=== PATIENT | female | born 1985 | race Caucasian/White ===

== ENCOUNTER → 2018-02-18 | Outpatient (REF) | payer OTHER ==
[~2018-02-18] MED LIST: ACE3 PO; DOCU-194; HYDR28OI11 TP; IBU800 PO; IBUP600T22 PO; IBUP800T37 PO; LORA-630 PO; ONDA-2 PO; ONDA4TAB PO; OXYB10TA16 PO; PANT40TA65 PO; PHEN200T32 PO; SER50 PO; TAMS0.4C70 PO
[2018-02-18 13:42] LABS: PLATELET COUNT, AUTOMATED 217 K/uL (150-450)
== END ==
LOC: ZZSENDIN 13:30
PROVIDERS: ATTEND Physician Assistant
DX: R53.83 Other fatigue (principal)
CPT/HCPCS: 85025

== ENCOUNTER → 2018-02-20 | Outpatient (CLI) | payer OTHER ==
--- NOTE | 2018-02-20 14:36 | RADIOLOGY IMAGING REPORT ---
FACILITY: [facility] - [place] PATIENT NAME: Nereyda Johnson : 1985 MR: [id number] V: [id number] EXAM DATE: ORDERING PHYSICIAN: BRYSON PAUL TECHNOLOGIST: Location: [facility] Patient: Nereyda Johnson : 1985 Visit/Account:[id number] Date of Sevice: 02/20/2018 THYROID HISTORY: Thyroid nodules COMPARISON: August 30, 2015 FINDINGS: SIZE: Normal. Right lobe: 4.5 x 1.3 x 1.8 cm Left lobe: 4.6 x 1.4 x 1.4 cm Isthmus: 2 mm PARENCHYMA: Slight heterogeneous bilaterally NODULES: Right lobe: * Previous noted subtle nodule along the anterior aspect of the right lobe is relatively unchanged i n size measuring 7.5 mm in maximum dimension. Left lobe: * None discrete. Isthmus: * There is a 3 x 7 x 2 mm cyst in the isthmus VASCULARITY: Within normal limits. ADDITIONAL FINDINGS: None. IMPRESSION: Previous noted subtle nodule along the anterior aspect of the right lobe is unchanged in size measuri ng 7.5 mm in diameter 7 mm cyst in the isthmus REFERENCE: 2015 [place] [employer] Management Guidelines for Adult Patients with Thyroid Nodules and D ifferentiated Thyroid Cancer: The [place] [employer] Guidelines Task Force on Thyroid Nodul es and Differentiated Thyroid Cancer. SONOGRAPHIC PATTERNS: * Benign: Purely cystic nodules (no solid component); estimated risk of malignancy <1 percent; no bi opsy recommended. * Very Low Suspicion: Spongiform or partially cystic nodules without any of the sonographic features described in low, intermediate, or high suspicion patterns; estimated risk of malignancy <3 percent; consider FNA at > 2 cm (Observation without FNA is also a reasonable option). * Low Suspicion: Isoechoic or hyperechoic solid nodule, or partially cystic nodule with eccentric so lid areas, without microcalcification, irregular margin or ETE (extra-thyroidal extension), or taller than wide shape; estimated risk of malignancy 5-10 percent; recommend FNA at >1.5 cm. * Intermediate Suspicion: Hypoechoic solid nodule with smooth margins without microcalcifications, E TE (extra-thyroidal extension), or taller than wide shape; estimated risk of malignancy 10-20 percent ; recommend FNA at > 1 cm. * High Suspicion: Solid hypoechoic nodule or solid hypoechoic component of a partially cystic nodule with one or more of the following features: irregular margins (infiltrative, microlobulated), microc alcifications, taller than wide shape, rim calcifications with small extrusive soft tissue component, evidence of ETE (extra-thyroidal extension); estimated risk of malignancy >70-90 percent; recommend FNA at > 1 cm. NOTES: * Although a sonographically suspicious subcentimeter thyroid nodule without evidence of extrathyroi yonathan extension or sonographically suspicious lymph nodes may be observed with close sonographic follow -up rather than pursuing immediate FNA, patient age and preference may modify decision-making. A > 50% interval increase in nodule volume and/or development of new suspicious sonographic features are felt to be a valid reasons for potential re-aspiration of a nodule previously shown to have benig n FNA cytology. Report Dictated By: Vivian Magana MD at 02/20/2018 2:27 PM Report E-Signed By: Vivian Magana MD at 02/20/2018 2:31 PM ABDIN:LEAH
== END ==
LOC: US 06:54
PROVIDERS: ATTEND Physician Assistant
DX: E04.2 Nontoxic multinodular goiter (principal)
CPT/HCPCS: 76536

== ENCOUNTER → 2019-02-02 | Outpatient (CLI) | payer OTHER ==
[~2019-02-02] MED LIST changes: +CHOL100058 PO; -DOCU-194; +DOCU100C56; +DOXY-179 PO; +LACT1CAP6 PO; +LEU3.75I IM ONLY; +LEUP11.25I IM ONLY; +LEVO1IUD3 IY; +LORA-1455 PO; +NOR5 PO
--- NOTE | 2019-02-02 09:32 | EKG ---
FACILITY: [facility] - [place] PATIENT NAME: FORD BECKETT : [id number] MR: [id number] V: [id number] EXAM DATE: ORDERING PHYSICIAN: SARAHY MARKS TECHNOLOGIST: DOM Momin Reason : PALPITATIONS Blood Pressure : / mmHG Vent. Rate : 066 BPM Atrial Rate : 066 BPM P-R Int : 154 ms QRS Dur : 080 ms QT Int : 370 ms P-R-T Axes : 076 092 077 degrees QTc Int : 387 ms Normal sinus rhythm Rightward axis No ST-T abnormalities No previous ECGs available Confirmed by CIARRA FERMIN ([id number]) on 02/02/2019 3:28:41 PM Referred By: SELINA Confirmed By:CIARRA FERMIN
== END ==
LOC: RESP 08:53
PROVIDERS: ATTEND Family Medicine
DX: R00.2 Palpitations (principal)
CPT/HCPCS: 93005

== ENCOUNTER → 2019-02-04 | Outpatient (CLI) | payer OTHER | LOC: LAB 11:13 | PROVIDERS: ATTEND Emergency Medicine | DX: G62.9 Polyneuropathy, unspecified (principal); R53.83 Other fatigue; N20.0 Calculus of kidney | CPT/HCPCS: 36415; 82306; 82310; 82607; 83970 ==

== ENCOUNTER → 2019-02-12 | Outpatient (CLI) | payer OTHER ==
--- NOTE | 2019-02-15 11:35 | RT HOLTER TEST ---
FACILITY: [facility] [place] PATIENT NAME: FORD BECKETT : [id number] MR: [id number] V: [id number] EXAM DATE: ORDERING PHYSICIAN: SARAHY MARKS TECHNOLOGIST: DONALD Hook-up date: 2019-02-12 09:08:00 Duration: 47:59:00 Test Indications: IRREGULAR HEART BEAT Medications: [id number] QRS complexes * Ventricular ectopics which represent % of total QRS comp. 2 Supraventricular ectopics which represent <1 % of total QRS comp. * Paced QRS complexes which represent % of total QRS comp. VENTRICULAR ECTOPY * Isolated * Bigeminal Cycles * Couplets * Runs * Beats in Runs * Beats LONGEST at * BPM at :: -- * Beats FASTEST at * BPM at :: -- SUPRAVENTRICULAR ECTOPY 2 Isolated 0 Couplets 0 Runs 0 Beats in Runs * Beats LONGEST at * BPM at :: -- * Beats FASTEST at * BPM at :: -- HEART RATES 53 MIN at 05:18:47 2019-02-14 82 AVG 142 MAX at 13:07:31 2019-02-13 LONGEST RR 1.256 secs at 05:18:42 2019-02-14 S-T LEVELS Channel 1 -12.800 mm MIN at 09:08:00 2019-02-12 -12.800 mm MAX at 09:08:00 2019-02-12 Channel 2 -12.800 mm MIN at 09:08:00 2019-02-12 -12.800 mm MAX at 09:08:00 2019-02-12 Channel 3 -12.800 mm MIN at 09:08:00 2019-02-12 -12.800 mm MAX at 09:08:00 2019-02-12 She had no arryhthmias during the one symptom triggered event. She was predominantly in a sinus rhyt hm and had rare supraventricular ectopy. Confirmed by CIARRA FERMIN ([id number]) on 02/15/2019 11:35:32 AM Referred By: Overread By: CIARRA FERMIN
== END ==
LOC: RESP 08:51
PROVIDERS: ATTEND Family Medicine
DX: I49.9 Cardiac arrhythmia, unspecified (principal)
CPT/HCPCS: 93225

== ENCOUNTER → 2019-02-18 | Outpatient (CLI) | payer OTHER ==
--- NOTE | 2019-02-18 16:59 | RADIOLOGY IMAGING REPORT ---
FACILITY: [facility] - [place] PATIENT NAME: Nereyda Johnson : 1985 MR: [id number] V: [id number] EXAM DATE: ORDERING PHYSICIAN: SMITHA SNYDER TECHNOLOGIST: Location: [facility] [place] Patient: Nereyda Johnson : 1985 Visit/Account:[id number] Date of Sevice: 02/18/2019 THYROID HISTORY: Thyroid nodule COMPARISON: February 20, 2018 FINDINGS: SIZE: Normal. Right lobe: 4.6 x 1.6 x 1.5 cm Left lobe: 4.4 x 1.2 x 1.2 cm Isthmus: 1.6 mm PARENCHYMA: Homogeneous. NODULES: Right lobe: * None discrete. Left lobe: * None discrete. Isthmus: * There is a 2.7 x 1.3 x 2.8 mm cyst in the isthmus VASCULARITY: Within normal limits. ADDITIONAL FINDINGS: None. IMPRESSION: 2.7 x 1.3 x 2.8 mm cyst in the isthmus REFERENCE: 2015 [place] [employer] Management Guidelines for Adult Patients with Thyroid Nodules and D ifferentiated Thyroid Cancer: The [place] Thy[employer] Guidelines Task Force on Thyroid Nodul es and Differentiated Thyroid Cancer. SONOGRAPHIC PATTERNS: * Benign: Purely cystic nodules (no solid component); estimated risk of malignancy <1 percent; no bi opsy recommended. * Very Low Suspicion: Spongiform or partially cystic nodules without any of the sonographic features described in low, intermediate, or high suspicion patterns; estimated risk of malignancy <3 percent; consider FNA at > 2 cm (Observation without FNA is also a reasonable option). * Low Suspicion: Isoechoic or hyperechoic solid nodule, or partially cystic nodule with eccentric so lid areas, without microcalcification, irregular margin or ETE (extra-thyroidal extension), or taller than wide shape; estimated risk of malignancy 5-10 percent; recommend FNA at >1.5 cm. * Intermediate Suspicion: Hypoechoic solid nodule with smooth margins without microcalcifications, E TE (extra-thyroidal extension), or taller than wide shape; estimated risk of malignancy 10-20 percent ; recommend FNA at > 1 cm. * High Suspicion: Solid hypoechoic nodule or solid hypoechoic component of a partially cystic nodule with one or more of the following features: irregular margins (infiltrative, microlobulated), microc alcifications, taller than wide shape, rim calcifications with small extrusive soft tissue component, evidence of ETE (extra-thyroidal extension); estimated risk of malignancy >70-90 percent; recommend FNA at > 1 cm. NOTES: * Although a sonographically suspicious subcentimeter thyroid nodule without evidence of extrathyroi yonathan extension or sonographically suspicious lymph nodes may be observed with close sonographic follow -up rather than pursuing immediate FNA, patient age and preference may modify decision-making. A > 50% interval increase in nodule volume and/or development of new suspicious sonographic features are felt to be a valid reasons for potential re-aspiration of a nodule previously shown to have benig n FNA cytology. Report Dictated By: Vivian Magana MD at 02/18/2019 4:47 PM Report E-Signed By: Vivina Magana MD at 02/18/2019 4:54 PM WSN:[email or web address]
== END ==
LOC: US 00:22
PROVIDERS: ATTEND Emergency Medicine
DX: E04.1 Nontoxic single thyroid nodule (principal)
CPT/HCPCS: 76536

== ENCOUNTER 2019-05-12 00:35 | Observation (INO) | payer OTHER ==
[2019-05-12] VITALS (14 sets, daily range): BP systolic 97–116; BP diastolic 56–81
[~2019-05-12] VITALS: Ht 167.6 cm; Wt 56.7 kg
[~2019-05-12 00:35] MED LIST changes: +LEVO50TA86 PO
[2019-05-12] MEDS ORDERED: FAMOTIDINE 20 MG TAB PO ONE (06:30)
[2019-05-12] MEDS ORDERED: ceFAZolin(*) 1 GM VIAL 1 GM in NS(*) 0.9% 100 ML MINI-BAG 100 ML IVPB ONE (06:30)
[2019-05-12] MEDS ORDERED: MIDAZOLAM 2 MG/2 ML VIAL IVP PRN (06:30)
[2019-05-12] MEDS ORDERED: PHENAZOPYRIDINE 200 MG TAB PO ONE (06:30)
[2019-05-12] MEDS ORDERED: ceFAZolin(*) 2GM/D5W 50ML 50 ML IVPB ONE (06:30)
[2019-05-12] MEDS ORDERED: LIDOCAINE/SOD BICARB 8.4% SYR ID ONE (06:30)
[2019-05-12] MEDS ORDERED: NORMOSOL R SOLN(*) 1000 ML BAG 1,000 ML IV PRN (06:30)
[2019-05-12 06:51] LABS: PLATELET COUNT, AUTOMATED 202 K/uL (150-450)
[2019-05-12] MEDS ORDERED: fentaNYL CITR 100 MCG/2 ML AMP ONE ×2 (06:59→08:30)
[2019-05-12] MEDS ORDERED: KETAMINE HCL-NS 50 MG/5 ML SYR ONE (06:59)
[2019-05-12] MEDS ORDERED: ONDANSETRON 4 MG/2 ML VIAL ONE (07:00)
[2019-05-12] MEDS ORDERED: PROPOFOL EMUL(*) 10MG/ML 20 ML 20 ML ONE (07:00)
[2019-05-12] MEDS ORDERED: ROCURONIUM BR 10 MG/ML 5 ML SY 5 ML ONE (07:00)
[2019-05-12] MEDS ORDERED: LIDOCAINE MPF 1% 5 ML VIAL ONE (07:00)
[2019-05-12] MEDS ORDERED: DEXAMETHASONE SOD PHOS 10MG/ML ONE (07:00)
[2019-05-12] MEDS ORDERED: BUPIV/EPI 0.25% 1:200,000 50ML INFIL ONE (07:05)
[2019-05-12] MEDS ORDERED: APREPITANT 40 MG CAP PO ONE (07:10)
[2019-05-12] MEDS ORDERED: SUGAMMADEX SOD 200 MG/2 ML SDV ONE ×2 (08:30→08:51)
[2019-05-12] MEDS ORDERED: KETOROLAC 30 MG/ML VIAL ONE (08:47)
--- NOTE | 2019-05-12 09:33 | Post Operative Note ---
Operative Note - [facility] Operative Day Date: May 12, 2019 Time: 09:28 Physicians Surgeon: Alfonzo Cake Maker: Bob Anesthesia: Patience GUZMAN Diagnosis Pre-Op Diagnosis: Chronic pelvic pain, presumed endometriosis Post-Op Diagnosis: Same Procedure Procedure(s): PHUONG, BS, dx cysto Specimen Removed:(Maybe N/A): Uterus, bilateral fallopian tubes, cervix Fluids Fluids: IVF: 1500cc UOP: 300cc Estimated Blood Loss: Minimal ZENAIDA KAUR MD May 12, 2019 09:32
[2019-05-12] MEDS ORDERED: LORazepam 0.5 MG TAB PO PRN (09:35)
[2019-05-12] MEDS ORDERED: MAGNESIUM HYDROXIDE* 30ML UDCP PO PRN (09:35)
[2019-05-12] MEDS ORDERED: METOCLOPRAMIDE 10 MG/2 ML SDV IV PRN (09:35)
[2019-05-12] MEDS ORDERED: HYDROmorphone HCL 2 MG/ML SDV IVP PRN (09:35)
[2019-05-12] MEDS: ONDANSETRON 4 MG/2 ML VIAL IV PRN ×2 (10:58→17:20)
[2019-05-12] MEDS: oxyCODONE HCL 5 MG CAP PO PRN ×2 (11:04→17:18)
--- NOTE | 2019-05-12 12:15 | EKG ---
FACILITY: [facility] PATIENT NAME: FORD BECKETT : [id number] MR: [id number] V: [id number] EXAM DATE: ORDERING PHYSICIAN: ZENAIDA KAUR TECHNOLOGIST: LINDA Test Reason : CHEST PRESSURE Blood Pressure : / mmHG Vent. Rate : 077 BPM Atrial Rate : 077 BPM P-R Int : 166 ms QRS Dur : 096 ms QT Int : 394 ms P-R-T Axes : 084 088 076 degrees QTc Int : 445 ms Normal sinus rhythm with sinus arrhythmia Nonspecific T wave abnormality Abnormal ECG When compared with ECG of 02-FEB-2019 09:23, T wave inversion now evident in Anterior leads QT has lengthened Confirmed by SABRA GIBBS ([id number]) on 05/13/2019 6:27:40 AM Referred By: NATASHA Confirmed By:SABRA GIBBS
--- NOTE | 2019-05-12 12:41 | OPERATIVE REPORT 1 ---
EVENT DATE: May 12, 2019 SURGEON: Ping Mejía MD ANESTHESIOLOGIST: Darian Morin MD ANESTHESIA: General endotracheal tube anesthesia. SCRAP CRANE OPERATOR: Dhaval Rojas MD PREOPERATIVE DIAGNOSIS Chronic pelvic pain with presumed endometriosis. POSTOPERATIVE DIAGNOSIS Chronic pelvic pain with presumed endometriosis. PROCEDURE PERFORMED 1. Robotic-assisted total laparoscopic hysterectomy with bilateral salpingectomy. 2. Diagnostic cystoscopy. SPECIMENS Uterus, cervix and bilateral fallopian tubes. IV FLUIDS 1500 cc. URINE OUTPUT 300 cc. ESTIMATED BLOOD LOSS Minimal. INDICATIONS FOR PROCEDURE This patient is a 33-year-old 3, para 3, who presented to clinic with chronic pelvic pain. She had attempted multiple hormonal therapy options for management of her pelvic pain including hormones, IUD, and antibiotics. None of this helped her. She therefore went on Depo-Lupron to see if this would improve her pain. She received two 3-month treatments of Depo-Lupron with significant improvement of her pelvic pain. She therefore developed a presumptive diagnosis of endometriosis. After discussing her management options when she stops the Depo-Lupron, she elected for definitive management. Her has had a vasectomy and they are no longer interested in further children. She therefore was consented for the above said procedure and admitted for the same. Please see History and Physical for full details. DESCRIPTION OF PROCEDURE The patient was properly identified and taken to the operating room. She was placed under general endotracheal tube anesthesia, placed in the dorsal lithotomy position and prepped and draped in the usual fashion for a laparoscopic and vaginal procedure. The patient received Ancef preoperatively for prophylactic antibiotics. Her SCDs were on and functioning. A bimanual exam was performed which revealed an approximately 8 cm anteverted uterus. A Graves speculum was placed to visualize the cervix which was multiparous and without lesion. The anterior lip was grasped with an Allis clamp. The cervix was serially dilated to 5 mm using Hegar dilators. A medium VCare uterine manipulator was then requested and assembled. A suture was then placed through the anterior lip of the cervix, through the os and then from the os through the posterior lip of the cervix. This suture was then passed through the VCare which was placed up to the uterine fundus and the tip was insufflated. This remained in place and the colpotomy ring was advanced to be flush against the cervix and vaginal mucosa. This was then tied down with the O Vicryl suture. The PneumoClear was then advanced into the vagina and secured. A Ross catheter was then placed to drain the bladder. The patient was then placed in the supine position and attention was turned to the laparoscopic portion of the procedure. The supraumbilical region was infiltrated with 0.25% Marcaine with epinephrine as well as the umbilicus. A Veress needle was then tested and proven to be functioning. The Veress needle was introduced through the umbilicus without difficulty using the double-click test. The pneumoperitoneum was initiated. An 8 mm incision was then made supraumbilically and an 8 mm trocar was introduced through this midline incision under direct visualization using a [employer] laparoscope. Once entry into the abdominal cavity was confirmed, the remaining locations of the trocars were planned with two on the right and two on the left. The two 8 mm trocars were inserted under direct visualization on the patient's right side after infiltrating 0.25% Marcaine. On the patient's left side, an 11 mm incision was made on the most lateral incision and an 8 mm in the more medial. These two ports were introduced under direct visualization. At this time, the patient was placed into Trendelenburg position and the [employer] robotic system was prepared for docking. It was then brought in and aligned. The endoscope port was docked. The endoscope was then introduced and targeting was performed on the uterus. The remaining arms were then docked without difficulty and the fenestrated bipolar graspers, ProGrasp, and monopolar scissors were then advanced under direct visualization into the pelvis and energy was connected. At this time, I was able to break sterile attire and sit at the console to initiate the hysterectomy. Surveillance of the abdomen at this time revealed a normal appearing liver and stomach. She also had an essentially normal appearing uterus, although there was hypervascularity within the uterine ligaments. In addition, the omentum and bowel appeared to be hypervascular. There was no clear endometriosis visualized, nor was there any significant scarring. In order to initiate the salpingectomy the patient's right side, the right ureter was identified and noted to be far away from the infundibulopelvic ligament or uterine ligaments. Therefore, the right fallopian tube was placed on gentle traction and the mesosalpinx was cauterized and transected and this tube was able to be completely and delivered through the assistant professor of communication port. At this time, the uteroovarian ligament was cauterized and transected, followed by the round ligament. Once this was transected, this allowed opening of the broad ligament. The anterior leaflet of the broad ligament was then opened and brought down across the midline of the colpotomy ring in order to separate the vesicouterine peritoneum. The posterior peritoneum was then dissected further off the uterus on the right side down to the cervix and the uterine vessels were identified, cauterized, and transected in order to allow the colpotomy to be performed. Attention was then turned to the patient's left side where the left ureter was identified and noted to be far away from the IP ligament as well as uterine ligaments. The left fallopian tube was placed on gentle traction and the mesosalpinx was cauterized and transected followed by complete excision of the fallopian tube which was also delivered through the assistant professor of communication port. The left round ligament was then cauterized and transected which allowed the broad ligament to be opened. The anterior leaflet was brought down to the midline where the prior vesicouterine peritoneum on the other side had been dissected. The posterior leaflet was then also brought down to the level of the colpotomy ring. The uterine vessels were then visualized and cauterized on the left side. These were taken down to the level of the colpotomy would need to be performed. At this time, the bladder flap was further delineated and brought down without difficulty to a safe area in order to allow for closure of the vaginal cuff later. The colpotomy was then initiated anteriorly with identification of the colpotomy ring. The colpotomy was then continued in a circumferential fashion until the entire colpotomy was then completed. The uterus was then delivered into the vagina and left in place to maintain pneumoperitoneum. The cuff was then copiously irrigated and noted to be hemostatic. An 0 Vicryl suture was then utilized in a [id number] manner to reapproximate the tissue on the left corner. The V-Loc was then initiated on the right side to reapproximate the right corner following to the left with an unlocked suture until this was completely closed. The suture was followed backwards with one additional suture towards the right. Once this was completed copious irrigation was again performed revealing adequate hemostasis. Using the [place] device, the fascia of the assistant professor of communication port was then closed using an 0 Vicryl with robotic assistance. All of the robotic instruments were then removed and the arms were undocked. Pneumoperitoneum was relieved and the 11 mm fascia was tied down. All 5 skin incisions were reapproximated using a 4-0 Monocryl and closed with Dermabond. The Ross catheter was then removed from the bladder. A cystoscope was assembled and introduced through the urethra and into the bladder under direct visualization. The entire bladder was evaluated and noted to be noted without any lesion or sutures. Bilateral ureteral jets were noted with yellow urine. There were no abnormalities within the bladder. The cystoscope was then removed and the Ross catheter was replaced. The patient tolerated this procedure well and recovered in the post-anesthesia care unit. All sponge, needle, and instruments counts were correct at the end of this procedure. MAHNAZ
[2019-05-12] MEDS: ACETAMINOPHEN 325 MG TAB PO PRN (13:04)
[2019-05-12] MEDS: DLR(*) 1000 ML BAG 1,000 ML IV PRN ×2 (13:06→21:07)
[2019-05-12] MEDS ORDERED: KETOROLAC 30 MG/ML VIAL IVP ONE (15:30)
--- NOTE | 2019-05-12 16:21 | OB/GYN Progress Note ---
OB Subjective Progress Notes Subjective Pt is feeling okay. She appears sleepy. She reports her pain is better controlled. She is not having significant vaginal bleeding. Ross is in. She is tolerating some po. No chest pain, dizziness or shortness of breath. She had some chest pain on the left side but this resolved after Ativan. An EKG was also done. Dr. Amos reviewed it and does not recommend further evaluation for now since her symptoms have resolved. OB Objective Physical Exam Vital Signs Date Time Temp Pulse Resp B/P (MAP) Pulse Ox O2 Delivery O2 Flow Rate FiO2 05/12/19 15:09 97.7 83 15 98/62 (74) 96 Nasal Cannula 1.0 General Appearance: Alert/Awake/No Acute Distress, Other (Sleepy) Neck: No Masses Cardiovascular: Normal Rhythm & Peripheral Pulses Respiratory: No Respiratory Distress, Clear to Auscultation Abdomen: Soft, Non-Tender, Non-Distended Incision: Clean, Dry, Intact, Dermabond Musculoskeletal: No Weakness/Pain Extremities: No Cyanosis,Clubbing or Edema Integumentary: Skin Intact without Lesions or Rash Psychological: Alert & Oriented X3, Appropriate Mood & Affect Result Diagram: 05/12/19 0628 Assessment and Plan Problems: (1) History of robot-assisted laparoscopic hysterectomy Assessment & Plan: POD#0 s/p RATLH/BS and diagnostic cystoscopy. Monitor for further chest pain, if develops will repeat EKG and troponin series as per Dr. Amos. Otherwise, routine orders. Encouraged ambulation. ZENAIDA KAUR MD May 12, 2019 16:21
[2019-05-12] MEDS ORDERED: IBUP800T37 PO (16:23)
[2019-05-12] MEDS ORDERED: OXYC-865 PO (16:23)
[2019-05-12] MEDS: oxyCODON/ACET (*)5/325MG (CII) 1 TAB TAB PO PRN (21:00)
[2019-05-12] MEDS ORDERED: IBUPROFEN 800 MG TAB PO PRN (21:00)
[2019-05-12] MEDS: DOCUSATE CALCIUM 240 MG CAP PO SCH (21:00)
[2019-05-12] MEDS: FAMOTIDINE 20 MG TAB PO SCH (21:00)
[2019-05-12] MEDS: SIMETHICONE 80 MG CHEW CHEW PRN (22:37)
[2019-05-13 03:16] VITALS: BP 111/73
[2019-05-13] MEDS: DLR(*) 1000 ML BAG 1,000 ML IV PRN (03:16)
[2019-05-13] MEDS: oxyCODON/ACET (*)5/325MG (CII) 1 TAB TAB PO PRN ×2 (03:16→08:14)
[2019-05-13 06:30] LABS: PLATELET COUNT, AUTOMATED 184 K/uL (150-450)
[2019-05-13 07:33] VITALS: BP 97/63
[2019-05-13] MEDS ORDERED: ONDANSETRON 4 MG ODT TABDP SL PRN (07:40)
--- NOTE | 2019-05-13 07:44 | OB/GYN Progress Note ---
OB Subjective Progress Notes Subjective Pt is doing well. She has only been standing by the bedside so far, as she was worried about pain. She has not had any medications since 0300. She is tolerating crackers but has also been getting Zofran because she is worried about developing nausea. No vomiting. No vaginal bleeding. Not yet ambulating. Ross just out. No chest pain, shortness of breath or dizziness. OB Objective Physical Exam Vital Signs Date Time Temp Pulse Resp B/P (MAP) Pulse Ox O2 Delivery O2 Flow Rate FiO2 05/13/19 03:16 97.7 75 14 111/73 (86) 95 Nasal Cannula 0.5 Intake and Output 05/13/19 07:03 Intake Total 4146 ml Output Total 1950 ml Balance 2196 ml Intake Oral 100 ml IV Total 4046 ml Output Urine Total 1950 ml General Appearance: Alert/Awake/No Acute Distress Cardiovascular: Normal Rhythm & Peripheral Pulses, Regular Rate and Rhythm Respiratory: No Respiratory Distress, Clear to Auscultation Abdomen: Soft, Non-Tender, Non-Distended Incision: Clean, Dry, Intact, Dermabond Extremities: No Cyanosis,Clubbing or Edema Integumentary: Skin Intact without Lesions or Rash Psychological: Alert & Oriented X3, Appropriate Mood & Affect Result Diagram: 05/13/19 0553 Assessment and Plan Problems: (1) History of robot-assisted laparoscopic hysterectomy Assessment & Plan: POD#1 s/p RATLH/BS and diagnostic cystoscopy. Continue routine orders. Encouraged ambulation. ZENAIDA KAUR MD May 13, 2019 07:44
[2019-05-13 08:03] VITALS: Ht 167.6 cm; Wt 56.7 kg
[2019-05-13] MEDS: DOCUSATE CALCIUM 240 MG CAP PO SCH (08:14)
[2019-05-13] MEDS: FAMOTIDINE 20 MG TAB PO SCH (08:14)
[2019-05-13] MEDS: SIMETHICONE 80 MG CHEW CHEW PRN (08:20)
[2019-05-13] MEDS ORDERED: IBUPROFEN 800 MG TAB PO SCH (09:00)
[2019-05-13] MEDS ORDERED: INFLUENZA VIRUS VAC 0.5ML SYR IM ONLY ONE (09:00)
[2019-05-13 11:10] VITALS: BP 103/60
--- NOTE | 2019-05-13 13:00 | OB/GYN Progress Note ---
OB Subjective Progress Notes Subjective Doing well. Pain controlled with oral medications. Tolerating regular diet. Ambulating. Voiding. Minimal vaginal bleeding. No chest pain, shortness of breath or dizziness. She is requesting discharge this afternoon. OB Objective Physical Exam Vital Signs Date Time Temp Pulse Resp B/P (MAP) Pulse Ox O2 Delivery O2 Flow Rate FiO2 05/13/19 11:41 95 05/13/19 11:10 98.1 67 12 103/60 (74) 05/13/19 08:08 Nasal Cannula 0.5 Intake and Output 05/13/19 07:03 Intake Total 4146 ml Output Total 1950 ml Balance 2196 ml Intake Oral 100 ml IV Total 4046 ml Output Urine Total 1950 ml General Appearance: Alert/Awake/No Acute Distress Cardiovascular: Normal Rhythm & Peripheral Pulses, Regular Rate and Rhythm Respiratory: No Respiratory Distress, Clear to Auscultation Abdomen: Soft, Non-Tender, Non-Distended Incision: Clean, Dry, Intact, Dermabond Extremities: No Cyanosis,Clubbing or Edema Integumentary: Skin Intact without Lesions or Rash Psychological: Alert & Oriented X3, Appropriate Mood & Affect Result Diagram: 05/13/19 0553 Assessment and Plan Problems: (1) History of robot-assisted laparoscopic hysterectomy Assessment & Plan: POD#1 s/p RATLH/BS and diagnostic cystoscopy. Meeting milestones. Desires discharge to home later today. Discussed routine postoperative expectations. Questions answered. Follow up in clinic in 1-2wks for postop check. ZENAIDA KAUR MD May 13, 2019 12:59
--- NOTE | 2019-05-13 13:01 | OB/GYN Discharge Summary ---
Discharge Summary Reason for Hosp/Final Diag: (1) History of robot-assisted laparoscopic hysterectomy Hospital Course & Plan: POD#1 s/p RATLH/BS and diagnostic cystoscopy. Meeting milestones. Desires discharge to home later today. Discussed routine postoperative expectations. Questions answered. Follow up in clinic in 1-2wks for postop check. Lates Vital Signs Vital Signs Date Time Temp Pulse Resp B/P (MAP) Pulse Ox O2 Delivery O2 Flow Rate FiO2 05/13/19 11:41 95 05/13/19 11:10 98.1 67 12 103/60 (74) 05/13/19 08:08 Nasal Cannula 0.5 Weight (Pounds): 125 Result Diagram: 05/13/19 0553 Condition: Improved Discharge: Home, Self Long Term Meds Active Scripts Oxycodone Hcl/Acetaminophen (PERCOCET 5-325 MG TABLET) 1 Each Tablet, 1 TAB PO Q4-6H PRN for pain, #30 TAB 0 Refills Prov:ZENAIDA KAUR MD 05/12/19 Leuprolide Acetate (LUPRON DEPOT 11.25 MG 3-MONTH) 11.25 Mg Syringekit, 11.25 MG IM ONLY [id number], #1 SYR 3 Refills Prov:ZENAIDA KAUR MD 12/14/18 Reported Medications Levothyroxine Sodium (LEVOTHYROXINE SODIUM) Unknown Strength Tablet, PO QDAY, TAB 02/25/19 Levonorgestrel 20 Mcg/Day (MIRENA 20 MCG/DAY) 1 Each Iud, EACH IY 11/04/18 Lorazepam (ATIVAN) 0.5 Mg Tablet, 1 MG PO PRN 11/04/18 Lactobacillus Combination No.4 (PROBIOTIC) 1 Each Capsule, 1 EACH PO, CAPSULE 11/04/18 Discontinued Reported Medications Cholecalciferol (Vitamin D3) (VITAMIN D) 1,000 Unit Capsule, 1000 UNIT PO, CAPS ULE 11/04/18 Follow up Referrals: [employer] - In Two Weeks @ [facility] with ZENAIDA KAUR MD Discharge Diet: As Tolerates Discharge Activity: No Heavy Lifting > 10lb, Pelvic Rest ZENAIDA KAUR MD May 13, 2019 13:01
[2019-05-13] MEDS: ACETAMINOPHEN 325 MG TAB PO PRN (13:20)
[2019-05-13 15:20] VITALS: BP 111/70
== END 2019-05-13 13:00 | disposition home or self-care (01) ==
LOC: OR 00:35 → INTOOBSV 10:30 → PED 10:30
PROVIDERS: ADMIT Obstetrics & Gynecology; ATTEND Obstetrics & Gynecology
DX: R10.2 Pelvic and perineal pain (principal); R07.9 Chest pain, unspecified
CPT/HCPCS: 36415; 58571; 84703; 85025; 88307; 93005; G0378; J1100; J1170; J1885; J2001; J2250; J2405; J2704; J3010; J3490; J8501; S0119; S2900; J0690